=== PATIENT | male | born 1975 | race Caucasian/White ===

== ENCOUNTER 2016-04-05 21:10 | Emergency (ER) ==
[2016-04-05 21:23] VITALS: BP 134/83; BMI 24.7
[2016-04-05 21:33] LABS: BASOPHILS # (AUTO) 0.1 K/uL (0-0.2); BASOPHILS % (AUTO) 0.5 % (0.0-3.0); EOSINOPHILS # (AUTO) 0.2 K/ul (0.0-0.7); EOSINOPHILS % (AUTO) 2.1 % (0.0-7.0); HEMATOCRIT 39.4 % (42.0-52.0); HEMOGLOBIN 12.8 g/dl (14.0-18.0); IMMATURE GRANULOCYTE % (AUTO) 0.3 % (0.0-5.0); MEAN CORPUSCULAR HEMOGLOBIN 26.9 pg (27.0-31.0); MEAN CORPUSCULAR HGB CONC 32.5 (31.8-35.4); MEAN CORPUSCULAR VOLUME 82.8 fl (80.0-94.0); MONOCYTES # (AUTO) 1.9 K/uL (0.4-2.0); MONOCYTES % (AUTO) 16.9 (0-10); NEUTROPHILS # (AUTO) 5.1 K/ul (2.0-6.9); NEUTROPHILS % (AUTO) 45.2; PLATELET COUNT 197 10^3/uL (140-440); RED BLOOD COUNT 4.76 10^6/ul (4.70-6.10); WHITE BLOOD COUNT 11.33 K/ul (4.2-10.2)
[2016-04-05] MEDS ORDERED: ATIVAN PO STA (21:45)
[2016-04-05 21:50] LABS: BILIRUBIN,URINE Negative (NEGATIVE); KETONES,URINE Negative (NEGATIVE); LEUKOCYTE ESTERASE ,URINE Negative (NEGATIVE); NITRITE,URINE Negative (NEGATIVE); PH,URINE 5.5 (5-9); PROTEIN,URINE Negative (NEGATIVE); URINE, BLOOD Negative (NEGATIVE)
[2016-04-05 21:51] LABS: ADD URINE MICROSCOPIC NO
[2016-04-05 22:00] LABS: COCAIN SCREEN,URINE NEGATIVE (NEGATIVE)
[2016-04-05 22:16] LABS: ALANINE AMINOTRANSFERASE 22 U/L (12-78); ALBUMIN 3.3 g/dL (3.4-5.0); ALBUMIN/GLOBULIN RATIO 0.85; ALKALINE PHOSPHATASE 90 U/L (50-136); ANION GAP 16.8; ASPARTATE AMINO TRANSFERASE 45 U/L (15-37); BILIRUBIN,TOTAL 0.19 mg/dL (0.00-1.20); BLOOD UREA NITROGEN 8 mg/dL (7-18); BUN/CREATININE RATIO 10.38; CALCIUM 8.9 mg/dL (8.2-10.2); CARBON DIOXIDE 21 mmol/L (21-32); CHLORIDE 98 mmol/L (98-107); CREATINE KINASE 119 U/L; CREATINE KINASE MB 4.6 ng/ml (0.0-3.6); CREATININE 0.77 mg/dL (0.60-1.10); GLUCOSE 64 mg/dL (70-100); POTASSIUM 3.8 mmol/L (3.5-5.1); SODIUM 132 mmol/L (136-145); TOTAL PROTEIN 7.2 g/dL (6.4-8.2)
[2016-04-05] MEDS ORDERED: DEXTROSE 50%-WATER ABBOJECT IVP ONE (22:22)
--- NOTE | 2016-04-05 23:07 | ED.PDOC ---
General ED Provider: Dr. AMANDA FRANKS-ER Chief Complaint: Psychiatric Complaint Stated Complaint: i feel nervous and jittery Time Seen by Physician: 21:15 Mode of Arrival: Walk-In Information Source: Patient, Family Exam Limitations: No limitations Nursing and Triage Documentation Reviewed and Agree: Yes Miscellaneous Complaint Exam - Complex/Multi-System Complaint/Exam Onset/Duration: 2 hrs Symptoms Are: Still present Episodes Lasting: Hours Initial Severity: Mild Current Severity: Mild Location of Pain: no pain Associated Signs and Symptoms: Denies: Decreased responsiveness, Confusion, Agitation, Dizziness, Weakness, Syncope, Headache, Short of air, Cough, Wheezing , Hemoptysis, Chest pain, Palpitations, Edema, Nausea, Vomiting, Diarrhea, Abdominal pain, Back pain, Dysuria, Hematemesis, Melena, Decreased oral intake, Fever, Diaphoresis, Immunocompromised, Anticoagulation Therapy, Recent medication changes, 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, Prior MRSA, Prior VRE, Recent trauma, Remote trauma Recent Echo/LV Function: No JVD Present: No Tachypnea Present: No Stridor Present: No Abdominal Findings: Present: Normal findings Glascow Coma Scale (see protocol): 15 Meningeal Signs Positive: No Focal Weakness: Present: None Focal Sensory Loss: Present: None Gait: Normal Gag Reflex Present: No Babinski Sign: Negative Right, Negative Left Skin Findings: Present: Normal findings Joint Swelling Present: No In-Dwelling Device Present: No Differential Diagnosis: Metabolic Abnormality Quality Indicator For Non-Traumatic Chest Pain/Syncope: EKG Performed Review of Systems - Review Of Systems Constitutional: Reports: No symptoms Eyes: Reports: No symptoms Ears, Nose, Mouth, Throat: Reports: No symptoms Respiratory: Reports: No symptoms Cardiac: Reports: No symptoms GI: Reports: No symptoms : Reports: No symptoms Musculoskeletal: Reports: No symptoms Skin: Reports: No symptoms Neurological: Reports: Anxiety Endocrine: Reports: No symptoms Hematologic/Lymphatic: Reports: No symptoms All Other Systems: Reviewed and Negative Past Medical History - Past Medical History Previously Healthy: Yes Endocrine: Reports: None Cardiovascular: Reports: None Respiratory: Reports: None Hematological: Reports: None Gastrointestinal: Reports: None Genitourinary: Reports: None Neuro/Psych: Reports: None Musculoskeletal: Reports: None Cancer: Reports: None - Surgical History General Surgical History: Reports: None - Family History Family History: Reports: None - Social History Smoking Status: Current every day smoker Hx Substance Use: No Alcohol Screening: Occasionally Lives: With family - Immunizations Tetanus Shot up to Date: Yes Physical Exam - Physical Exam Appearance: Well-appearing, No pain distress, Well-nourished Eyes: MART, EOMI, Conjunctiva clear ENT: Ears normal, Nose normal, Oropharynx normal Neck: Supple Respiratory: Airway patent, Breath sounds clear, Breath sounds equal, Respirations nonlabored Cardiovascular: RRR, Pulses normal, No rub, No murmur GI/: Soft, Nontender, No masses, Bowel sounds normal, No Organomegaly Musculoskeletal: Normal strength, ROM intact, No edema, No calf tenderness Skin: Warm, Dry, Normal color Neurological: Sensation intact, Motor intact, Reflexes intact, Cranial nerves intact, Alert, Oriented Psychiatric: Affect appropriate, Mood appropriate Re-Evaluation - Re-Evaluation Time of Re-Evaluation: 23:06 Status: Improved Vital Signs Stable: Yes Pain Level: 0 Appearance: NAD Lungs: Clear Skin: Warm and Dry Neuro: Alert and Oriented X3 CV: RRR Critical Care Note - Critical Care Note Total Time (mins): 0 Course - Course Hematology/Chemistry: 04/05/16 21:37 04/05/16 21:37 Orders, Labs, Meds: Lab Review 04/05/16 04/05/16 21:37 21:42 WBC 11.33 H RBC 4.76 Hgb 12.8 L Hct 39.4 L MCV 82.8 MCH 26.9 L MCHC 32.5 RDW Coeff of Javed 16.7 H Plt Count 197 Immature Gran % (Auto) 0.3 Neut % (Auto) 45.2 Lymph % (Auto) 35.0 [place] % (Auto) 16.9 H Eos % (Auto) 2.1 Baso % (Auto) 0.5 Immature Gran # (Auto) 0.0 Neut # 5.1 Lymph # 4.0 H Kern # 1.9 Eos # 0.2 Baso # 0.1 D-Dimer 0.57 Sodium 132 L Potassium 3.8 Chloride 98 Carbon Dioxide 21 Anion Gap 16.8 BUN 8 Creatinine 0.77 Estimated GFR (MDRD) 111.00 BUN/Creatinine Ratio 10.38 Glucose 64 L Calcium 8.9 Total Bilirubin 0.19 AST 45 H ALT 22 Alkaline Phosphatase 90 Total Creatine Kinase 119 CK-MB (CK-2) 4.6 H CK-MB (CK-2) % 3.90004 Troponin I < 0.0100 Total Protein 7.2 Albumin 3.3 L Globulin 3.9 Albumin/Globulin Ratio 0.85 TSH 1.687 Free T4 0.91 Urine Color Yellow Urine Clarity Clear Urine pH 5.5 Ur Specific [place] 1.010 Urine Protein Negative Urine Glucose (UA) 1+ Urine Ketones Negative Urine Blood Negative Urine Nitrite Negative Urine Bilirubin Negative Urine Urobilinogen 0.2 Ur Leukocyte Esterase Negative Urine Opiates Screen Positive Ur Oxycodone Screen Negative Urine Methadone Screen Negative Ur Propoxyphene Screen Negative Ur Barbiturates Screen Negative U Tricyclic Antidepress Negative Ur Phencyclidine Scrn Negative Ur Amphetamine Screen Negative U Methamphetamines Scrn Negative U Benzodiazepines Scrn Negative Urine Cocaine Screen Negative U Cannabinoids Screen Negative Orders Category Date Time Status EKG-(ED ONLY) Stat CARDIO 04/05/16 21:21 Ordered ACCUCHECK (ED) [ED ACCUCHECK ASSESSMENT] .ONCE EMERGENCY 04/05/16 21:24 Active ACCUCHECK (ED) [ED ACCUCHECK ASSESSMENT] .ONCE EMERGENCY 04/05/16 23:00 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] .ONCE EMERGENCY 04/05/16 21:23 Active ED IV/MEDIPORT/POWERPORT .ONCE EMERGENCY 04/05/16 22:22 Active CBC W/ AUTO DIFF Stat LAB 04/05/16 21:37 Completed COMPREHENSIVE METABOLIC PANEL Stat LAB 04/05/16 21:37 Completed CREATINE KINASE Stat LAB 04/05/16 21:37 Completed D-DIMER Stat LAB 04/05/16 21:37 Completed FREE T4 (FREE THYROXINE) Stat LAB 04/05/16 21:37 Completed THYROID STIMULATING HORMONE Stat LAB 04/05/16 21:37 Completed TROPONIN I Stat LAB 04/05/16 21:37 Completed URINALYSIS C & S IF INDICATED Stat LAB 04/05/16 21:42 Completed URINE DRUG SCREEN (RAPID FOR ED) [DRUG SCREEN, URINE, LAB 04/05/16 21:42 Completed RAPID] Stat 0.9 % Sodium Chloride [Saline Flush] MEDS 04/05/16 22:22 Ordered 1 syr IVF PRN PRN Dextrose 50 % in Water [Dextrose 50%-Water Abboject] MEDS 04/05/16 22:22 Discontinued 50 ml IVP NOW ONE Lorazepam [Ativan] MEDS 04/05/16 21:45 Discontinued 1 mg PO ONCE STA Medications Generic Name Dose Route Start Last Admin Trade Name Freq PRN Reason Stop Dose Admin Sodium Chloride 1 syr 04/05/16 22:22 Saline Flush IVF PRN PRN To flush IV Discontinued Medications Generic Name Dose Route Start Last Admin Trade Name Freq PRN Reason Stop Dose Admin Dextrose 50 ml 04/05/16 22:22 Dextrose 50%-Water Abboject IVP 04/05/16 22:23 NOW ONE Lorazepam 1 mg 04/05/16 21:45 04/05/16 22:04 Ativan PO 04/05/16 21:46 1 mg ONCE STA Administration Vital Signs: Temp Pulse Resp BP Pulse Ox 04/05/16 21:10 9734 F H 92 H 20 134/83 98 Departure - Departure Time of Disposition: 23:06 Disposition: HOME SELF-CARE Discharge Problem: Hypoglycemia, Anxiety Instructions: Non-diabetic Hypoglycemia (ED) Condition: Good Pt referred to PMD for follow-up: Yes Additional Instructions: watch diet--avoid simple carbs and surgery drinks--talk to your pcp about bs monitoring Allergies/Adverse Reactions: Allergies aspirin Adverse Reaction (Verified 04/05/16 21:18) states, "makes my heart slow down" Penicillins Adverse Reaction (Verified 04/05/16 21:18) Rash Home Medications: Ambulatory Orders Acetaminophen with Codeine [Acetaminophen-Cod #3 Tablet] 1 tab PO Q4H PRN Amlodipine Besylate 10 mg PO DAILY 04/05/16 Atenolol 50 mg PO BID 04/05/16 Divalproex Sodium [Depakote] 250 mg PO TID 04/05/16 Risperidone [Risperdal] 1.5 mg PO BID 04/05/16 Disposition Discussed With: Patient, Family
[2016-04-07 07:38] VITALS: TEMP 97.3
== END 2016-04-05 22:15 | disposition home or self-care (01) ==
LOC: ED 21:10
DX: E16.2 Hypoglycemia, unspecified (principal); F41.9 Anxiety disorder, unspecified; F17.210 Nicotine dependence, cigarettes, uncomplicated; Z79.899 Other long term (current) drug therapy
CPT/HCPCS: 36415; 80053; 80306; 81001; 82550; 82553; 82962; 84439; 84443; 84484; 85025; 85379; 93005; 93010; 96374; 96375; 99284

== ENCOUNTER 2017-03-26 14:35 | Emergency (ER) ==
[2017-03-26 14:43] VITALS: BP 163/96; TEMP 97.5; BMI 26.0
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
--- NOTE | 2017-03-26 18:58 | DI ---
EXAM: Three views of the left hand HISTORY: Left hand pain post fall. COMPARISON: Left wrist x-rays same day FINDINGS: There is cortical irregularity and displaced fracture of the distal phalanx of the fifth di git with degenerative change of the associated joint spaces and metallic densities throughout the sof t tissues. No prior is available to evaluate for change. The adjacent osseous structures are unremar kable. IMPRESSION: 1. Mildly displaced fracture of the distal phalanx with associated soft tissue swelling and metallic densities in the soft tissues. Please correlate with trauma. 2. No additional abnormalities are identified.
--- NOTE | 2017-03-26 18:59 | DI ---
EXAM: Two views of the left forearm HISTORY: Fall COMPARISON: Same day left wrist and hand x-rays FINDINGS: There is no lytic or blastic lesion identified. Joint spaces are maintained. There is no displaced fracture or dislocation. The soft tissues are normal. IMPRESSION: No acute abnormality or displaced fracture of the left forearm.
--- NOTE | 2017-03-26 19:08 | DI ---
EXAM: Left wrist, three views, 03/26/2017 HISTORY: Pain COMPARISON: None. FINDINGS / IMPRESSION: Subtle cortical irregularity is present at the lateral aspect of the radial m etaphysis. This line represents a nondisplaced fracture site. Soft tissue swelling anterior distal ra dius may represent hematoma. The distal ulna appears intact. The carpal bones appear intact. No definitive intra-articular extension. If clinically indicated CT could be considered for further c haracterization.
== END 2017-03-26 20:16 | disposition home or self-care (01) ==
LOC: ED 14:35
DX: S52.502A Unspecified fracture of the lower end of left radius, initial encounter for closed fracture (principal); V28.4XXA Motorcycle driver injured in noncollision transport accident in traffic accident, initial encounter; F17.210 Nicotine dependence, cigarettes, uncomplicated
CPT/HCPCS: 99283

== ENCOUNTER 2019-01-03 19:02 | Inpatient (IN) ==
[2019-01-03] MEDS ORDERED: FLOMAX PO STA (19:41)
[2019-01-03] MEDS ORDERED: LACTATED RINGERS 1,000 ML IV STA (19:41)
--- NOTE | 2019-01-03 19:52 | ED.PDOC ---
General ED Provider: Dr. PRADEEP MARINO Chief Complaint: Urinary Problem Stated Complaint: Patient is a 43 year old male who states that he had a Hernandez catheter placed 6 days ago. States that starting yesterday he feels like he is not urinating. Has also not been dinking enough. Feels full Denies fever. Time Seen by Physician: 19:45 Mode of Arrival: Walk-In Information Source: Patient Primary Care Provider: IZAIAH PACHECO Nursing and Triage Documentation Reviewed and Agree: Yes Does patient meet sepsis criteria?: No System Inflammatory Response Syndrome: Not Applicable Sepsis Protocol: For patient's 13 years and over: Temp is 96.8 and below OR 101 and greater Pulse >90 BPM Resp >20/minute Acutely Altered Mental Status Are patient's symptoms suggestive of a new infection, such as: -Pneumonia -Skin, Soft Tissue -Endocarditis -UTI -Bone, Joint Infection -Implantable Device -Acute Abdominal Infection -Wound Infection -Meningitis -Blood Stream Catheter Infection -Unknown Complaint Exam Complaint/Exam Patient Complains of: Reports Dysuria Onset/Duration: yesterday Symptoms Are: Still present Timing: Constant Initial Severity: Mild Current Severity: Mild Location of Pain: Reports Suprapubic (and catheter site ) Character: Reports Dull Aggravating: Reports None Alleviating: Reports None Associated Signs and Symptoms: Denies Diaphoresis, Back pain, Fever, Hematuria, Dysuria, Constipation, Blood in stool, Rectal pain, Appetite change, Nausea, Vomiting, Penile swelling, Penile discharge, Decreased urine output, Increased urine frequency, Increased thirst, Decreased activity, Lethargy, Scrotal pain, Scrotal swelling and Abdominal Pain Last Voided: does not remember Testicular Torsion Risk Factors: Reports None Surgical Obstruction Risk Factors: Reports None Related Surgical History: Reports None Abdominal Findings: Present None Genitalia Exam: Present Normal findings Differential Diagnoses: UTI and Other (Bladder spasm due to hernandez cathter. ) Review of Systems Review Of Systems Constitutional: Reports No symptoms Eyes: Reports No symptoms Ears, Nose, Mouth, Throat: Reports No symptoms Respiratory: Reports No symptoms Cardiac: Reports No symptoms GI: Reports No symptoms : Reports Dysuria and Other (Difficulty Urinating despitne having a catheter. ) Musculoskeletal: Reports No symptoms Skin: Reports No symptoms Neurological: Reports Anxiety Endocrine: Reports No symptoms Hematologic/Lymphatic: Reports No symptoms All Other Systems: Reviewed and Negative [facility] Medical History (Updated 01/03/19 @ 23:38 by GERI HAYNES) History of repair of hiatal hernia (Acute) Hx of hiatal hernia (Acute) Family History (Updated 01/03/19 @ 23:38 by GERI HAYNES) MATERNAL GRANDFATHER Cancer Hypertension MATERNAL GRANDMOTHER Cancer Hypertension PATERNAL GRANDFATHER Cancer Hypertension PATERNAL GRANDMOTHER Cancer Hypertension 32 MOTHER Hypertension Social History (Updated 01/03/19 @ 23:40 by GERI HAYNES) Do you feel safe at home: Yes History of physical abuse: No History of emotional abuse: No History of sexual abuse: No Smoking and tobacco status: Former smoker Tobacco: How many years used: 31 Smoking status stop date: 01/01/19 History of recent travel: No Physical Exam Physical Exam Appearance: Thin Ill-appearing: Mild Pain Distress: Mild Respiratory: Airway patent, Breath sounds clear and Breath sounds equal Cardiovascular: RRR, Pulses normal, No rub and No murmur GI/: Soft, Nontender, No masses and Bowel sounds normal Musculoskeletal: Normal strength, ROM intact and No edema Skin: Warm and Dry Neurological: Motor intact, Alert and Oriented Psychiatric: Anxious Interpretation Radiology Interpretation Radiology Interpretation By: ED Physician Radiology Results: Negative Exam Interpreted: Portable CXR EKG Interpretation Time of EKG #1: 22:03 Rate: Normal Rhythm: Sinus Ectopy: None ST Segment: Normal Interpretation: incomplete RBBB, Left Atrial Fasicular block Physician Notification Case Discussed Physician Notified: Dr Perkins Time of Notification: 21:55 Critical Care Note Critical Care Note Total Time (mins): 40 Course Course Hematology/Chemistry: 01/04/19 06:11 01/04/19 06:11 Orders, Labs, Meds: Lab Review 01/03/19 01/03/19 01/03/19 19:29 20:00 20:00 WBC 19.64 H RBC 4.04 L Hgb 12.6 L Hct 35.0 L MCV 86.6 MCH 31.2 H MCHC 36.0 H RDW Coeff of Javed 11.7 Plt Count 252 Immature Gran % (Auto) 0.6 Neut % (Auto) 92.0 Lymph % (Auto) 2.5 L [place] % (Auto) 4.7 Eos % (Auto) 0.1 Baso % (Auto) 0.1 Immature Gran # (Auto) 0.1 Neut # (Auto) 18.1 H Lymph # (Auto) 0.5 L Porter # (Auto) 0.9 Eos # (Auto) 0.0 Baso # (Auto) 0.0 Sodium 123.8 L Potassium 4.37 Chloride 87.6 L Carbon Dioxide 27.8 Anion Gap 12.77 BUN 8.2 L Creatinine 0.76 Estimated GFR (MDRD) 111.00 BUN/Creatinine Ratio 10.78 Glucose 143.2 H Lactic Acid Calcium 9.47 Total Bilirubin 0.73 AST 24.7 ALT 16.5 Alkaline Phosphatase 85.0 Total Protein 7.66 Albumin 4.53 Globulin 3.13 Albumin/Globulin Ratio 1.44 Procalcitonin Urine Color Yellow Urine Clarity Cloudy Urine pH 8.5 Ur Specific [place] 1.020 Urine Protein 2+ Urine Glucose (UA) Negative Urine Ketones 1+ Urine Blood 2+ Urine Nitrite Positive Urine Bilirubin Negative Urine Urobilinogen 1.0 Ur Leukocyte Esterase 3+ Urine Microscopic RBC 5-10 Urine Microscopic WBC 30-50 Ur Squamous Epith Cells Not present Ur Renal Epithelial Cell 0-2 Amorphous Sediment Trace Urine Bacteria 1+ 01/03/19 01/03/19 21:00 21:00 WBC RBC Hgb Hct MCV MCH MCHC RDW Coeff of Javed Plt Count Immature Gran % (Auto) Neut % (Auto) Lymph % (Auto) [place] % (Auto) Eos % (Auto) Baso % (Auto) Immature Gran # (Auto) Neut # (Auto) Lymph # (Auto) [place] # (Auto) Eos # (Auto) Baso # (Auto) Sodium Potassium Chloride Carbon Dioxide Anion Gap BUN Creatinine Estimated GFR (MDRD) BUN/Creatinine Ratio Glucose Lactic Acid 1.59 Calcium Total Bilirubin AST ALT Alkaline Phosphatase Total Protein Albumin Globulin Albumin/Globulin Ratio Procalcitonin 0.11 Urine Color Urine Clarity Urine pH Ur Specific [place] Urine Protein Urine Glucose (UA) Urine Ketones Urine Blood Urine Nitrite Urine Bilirubin Urine Urobilinogen Ur Leukocyte Esterase Urine Microscopic RBC Urine Microscopic WBC Ur Squamous Epith Cells Ur Renal Epithelial Cell Amorphous Sediment Urine Bacteria Orders Category Date Time Status EKG-(ED ONLY) Stat CARDIO 01/03/19 21:59 Completed ED BLADDER SCAN .ONCE EMERGENCY 01/03/19 19:21 Active ED IV/MEDIPORT/POWERPORT .ONCE EMERGENCY 01/03/19 19:41 Active BLOOD CULTURE (ED ONLY) Stat LAB 01/03/19 Received CBC W/ AUTO DIFF Stat LAB 01/03/19 20:00 Completed COMPREHENSIVE METABOLIC PANEL Stat LAB 01/03/19 20:00 Completed LACTIC ACID Stat LAB 01/03/19 21:00 Completed PROCALCITONIN Stat LAB 01/03/19 21:00 Completed URINALYSIS C & S IF INDICATED Stat LAB 01/03/19 19:29 Completed URINE CULTURE Stat LAB 01/03/19 19:43 Received 0.9 % Sodium Chloride [Saline Flush] MEDS 01/03/19 19:41 Active 1 syr IVF PRN PRN Levofloxacin/D5w [Levaquin 500 mg/100 ml D5w] MEDS 01/03/19 20:35 Discontinued 500 mg in 100 ml IV ONCE Lorazepam [Ativan] MEDS 01/03/19 20:37 Discontinued 1 mg PO ONCE STA Morphine Sulfate [Morphine 4 mg/ml Vial] MEDS 01/03/19 22:19 Discontinued 4 mg IVP ONCE STA Ringers Lactated Solution [Lactated Ringers] 1,000 ml MEDS 01/03/19 19:41 Discontinued IV BOLUS Tamsulosin HCl [Flomax] MEDS 01/03/19 19:41 Discontinued 0.4 mg PO ONCE STA CHEST, 1V AP ONLY Stat RADS 01/03/19 21:59 Completed Medications Generic Name Dose Route Start Last Admin Trade Name Freq PRN Reason Stop Dose Admin Acetaminophen 650 mg 01/03/19 22:48 01/04/19 00:58 Tylenol PO 650 mg Q4H PRN Administration Fever > 102 Amlodipine Besylate 10 mg 01/04/19 09:00 Norvasc PO DAILY [facility] Atenolol 50 mg 01/04/19 09:00 Tenormin PO DAILY [facility] Benztropine Mesylate 0.5 mg 01/04/19 09:00 Cogentin PO TID [facility] Enoxaparin Sodium 40 mg 01/04/19 09:00 Lovenox SUBCUT DAILY [facility] Haloperidol 1 mg 01/04/19 09:00 Haldol PO TID [facility] Hydroxyzine HCl 25 mg 01/04/19 09:00 Atarax PO TID [facility] Sodium Chloride 1,000 mls @ 90 mls/hr 01/03/19 23:00 01/03/19 23:38 Sodium Chloride IV 90 mls/hr .[id number] URSZULA Administration Levofloxacin/Dextrose 500 mg in 100 mls @ 100 mls/hr 01/04/19 21:00 Levaquin 500 Mg/100 Ml D5w IV 01/07/19 20:59 Q24H URSZULA Meloxicam 15 mg 01/04/19 09:00 Mobic PO DAILY [facility] Non-Formulary Medication 2 mg 01/04/19 09:00 Trihexyphenidyl PO TID URSZULA Ondansetron HCl 4 mg 01/03/19 22:48 Zofran 4 Mg/2 Ml IVP Q6H PRN Nausea / Vomiting Oxcarbazepine 300 mg 01/04/19 09:00 Trileptal PO TID URSZULA Ranitidine HCl 150 mg 01/04/19 21:00 Zantac PO BEDTIME URSZULA Sodium Chloride 1 syr 01/03/19 19:41 Saline Flush IVF PRN PRN To flush IV Discontinued Medications Generic Name Dose Route Start Last Admin Trade Name Freq PRN Reason Stop Dose Admin Lactated Ringer's 1,000 mls @ 1,000 mls/hr 01/03/19 19:41 01/03/19 20:23 Lactated Ringers IV 01/03/19 20:40 1,000 mls/hr BOLUS STA Administration Levofloxacin/Dextrose 500 mg in 100 mls @ 100 mls/hr 01/03/19 20:35 01/03/19 20:47 Levaquin 500 Mg/100 Ml D5w IV 01/03/19 21:34 100 mls/hr ONCE STA Administration Lorazepam 1 mg 01/03/19 20:37 01/03/19 20:43 Ativan PO 01/03/19 20:38 1 mg ONCE STA Administration Morphine Sulfate 4 mg 01/03/19 22:19 01/03/19 22:32 Morphine 4 Mg/Ml Vial IVP 01/03/19 22:20 4 mg ONCE STA Administration Tamsulosin HCl 0.4 mg 01/03/19 19:41 01/03/19 20:22 Flomax PO 01/03/19 19:42 0.4 mg ONCE STA Administration Vital Signs: Temp Pulse Resp BP Pulse Ox 01/03/19 19:02 97.9 F 98 H 18 145/85 H 96 Discharge Plan Discharge Patient Disposition: ADMITTED INPATIENT Discharge Problem: Hyponatremia Urinary tract infection associated with indwelling urethral catheter Qualifiers: Encounter type: initial encounter Qualified Code(s): T83.511A - Infection and inflammatory reaction due to indwelling urethral catheter, initial encounter ED Provider: PRADEEP MARINO Condition: Fair Discharge Date/Time: 01/03/19 23:18
[2019-01-03] MEDS ORDERED: LEVAQUIN 500 MG/100 ML D5W 500 MG/100 ML BAG IV STA (20:35)
[2019-01-03] MEDS ORDERED: ATIVAN PO STA (20:37)
[2019-01-03] MEDS ORDERED: MORPHINE 4 MG/ML VIAL IVP STA (22:19)
--- NOTE | 2019-01-03 22:21 | DI ---
EXAM: Chest, one-view HISTORY: Cough FINDINGS: Cardiac and mediastinal contours are normal. Pulmonary vasculature is normal. Lungs are clear. Bony thorax is unremarkable. IMPRESSION: Within normal limits
[2019-01-03] MEDS ORDERED: ZOFRAN 4 MG/2 ML IVP PRN (22:48)
[2019-01-03 23:34] VITALS: BMI 22.4
[2019-01-03] MEDS: SODIUM CHLORIDE 1,000 ML IV SCH (23:38)
[2019-01-04] MEDS: TYLENOL PO PRN ×2 (00:58→16:10)
[2019-01-04] MEDS: COGENTIN PO SCH ×3 (08:01→20:31)
[2019-01-04] MEDS: ATARAX PO SCH ×3 (08:01→20:31)
[2019-01-04] MEDS: NORVASC PO SCH (08:01)
[2019-01-04] MEDS: TRILEPTAL PO SCH ×3 (08:01→20:31)
[2019-01-04] MEDS: TENORMIN PO SCH (08:01)
[2019-01-04] MEDS: HALDOL PO SCH ×3 (08:02→20:30)
[2019-01-04] MEDS: MOBIC PO SCH ×2 (08:02→08:39)
[2019-01-04] MEDS: LOVENOX SUBCUT SCH (08:35)
[2019-01-04] MEDS ORDERED: NON-FORMULARY MEDICATION (Oxcarbazepine 300 MG) PO SCH (09:00)
[2019-01-04] MEDS: TRIHEXYPHENIDYL 2 MG PO SCH ×3 (09:17→20:32)
--- NOTE | 2019-01-04 09:25 | HP ---
DATE OF SERVICE: 01/03/2019 REASON FOR HOSPITALIZATION: Hyponatremia and urosepsis. HISTORY OF PRESENT ILLNESS: This 43 year old /WHITE M was hospitalized 01/03/19 with UTI. The patient had feeling like he is not completely evacuating his bladder and came to the emergency room last night. PAST MEDICAL HISTORY: Hypertension Generalized osteoarthritis Depression He has medical problems involving mental health and is followed by Dr. Richard Rhodes, Primary Care in [place], [place]. Dr. Rhodes referred the patient to urologist and is to be seen this month. The patient was seen in the ER one week ago at [facility] and Lamb catheter was introduced because of possibility of stricture. He still has the Lamb. The patient states he has a broken back for past 13 to 14 years and has been disabled since then but is up and about does all activity of daily living in no distress. REVIEW OF SYSTEMS: CONSTITUTIONAL: No night sweats. No fatigue, malaise, lethargy. No fever or chills. HEENT: Eyes: No visual changes. No eye pain. No eye discharge. ENT: No runny nose. No epistaxis. No sinus pain. No sore throat. No odynophagia. No ear pain. No congestion. RESPIRATORY: No cough, no congestion. No hemoptysis. No shortness of breath. CARDIOVASCULAR: No angina symptoms. No CHF symptoms. No atypical chest pain for CAD. No palpitations. No PND. No orthopnea. GASTROINTESTINAL: No abdominal pain. No nausea or vomiting. No diarrhea or constipation. No hematemesis. No hematochezia. GENITOURINARY: Lamb catheter in place. Feels as though he is not completely emptying his bladder. MUSCULOSKELETAL: No musculoskeletal pain. No joint swelling. No arthritis. NEUROLOGICAL: No headache. No neck pain. No syncope. No seizures. No dizziness. PSYCHIATRIC: Not anxious. No depression. No suicidal thoughts. No homicidal thoughts. SKIN: No rash. No lesions. No wounds. ENDOCRINE: No unexplained weight loss. No weight gain. HEMATOLOGIC/LYMPHATIC: No anemia. No purpura. No petechiae. No prolonged or excessive bleeding. No palpable lymph nodes. PERSONAL/FAMILY/SOCIAL HISTORY: The patient is single, lives with girlfriend. The patient is a smoker. Also smokes marijuana. Family History: Hypertension. MEDICATIONS: (HOME) Haloperidol 1 mg p.o. t.i.d. Ranitidine (Zantac) Hydroxyzine 25 mg p.o. t.i.d. Amlodipine 10 mg p.o. daily Oxcarbazepine 300 mg p.o. t.i.d. Meloxicam 15 mg p.o. daily Trihexyphenidyl 2 mg p.o. t.i.d. Benztropine 0.5 mg p.o. t.i.d. Atenolol 50 mg p.o. daily ALLERGIES: ASPIRIN, PENICILLINS PHYSICAL EXAMINATION: GENERAL: The patient is awake, alert and oriented, lying/sitting in bed in no distress. VITAL SIGNS: Temperature 99.2 F, Pulse 89, Respiratory Rate 16, BP 111/65, Pulse Ox 91% HEENT: Face is symmetric. Head normocephalic, atraumatic. Eyes: Extraocular muscles are intact. Pupils are equal, round and reactive to light and accommodation. Ears: No lesions. Nose appeared normal. Throat: No exudate or erythema. NECK: Supple. No JVD, no carotid bruit. No lymphadenopathy or thyromegaly. LUNGS: Clear to auscultation. Percussion note normal. Chest symmetrical. HEART: S1, S2, no S3. No murmur. No cyanosis or clubbing. No ascites. Pulses: Dorsalis pedis and posterior tibial pulses +1 to +2 bilaterally. ABDOMEN: Soft. Nontender. Bowel sounds active. No CVA tenderness. No mass felt. EXTREMITIES: No edema. Full range of motion of all extremities, equal. NEUROLOGIC: No focal deficit. Cranial nerves II through XII are grossly intact. No headache, no double vision or headache. SKIN: Not dry. Intact. Turgor - normal. LYMPHATIC: No palpable lymph nodes/no lymphedema. MUSCULOSKELETAL: Normal joints with no swelling. Muscle tone is normal. LAB REVIEW: 01/04/19 06:11: Sodium 123.6 L, Potassium 4.30, Chloride 91.9 L, Carbon Dioxide 25.2, Anion Gap 10.80, BUN 7.7 L, Creatinine 0.75, Estimated GFR (MDRD) 113.00, BUN/Creatinine Ratio 10.26, Glucose 134.1 H, Calcium 8.73 01/04/19 06:11: WBC 25.00 H D, RBC 3.67 L, Hgb 11.3 L, Hct 31.5 L, MCV 85.8, MCH 30.8, MCHC 35.9 H, RDW Coeff of Javed 11.7, Plt Count 210, Immature Gran % (Auto) 0.8, Neut % (Auto) 84.8, Lymph % (Auto) 4.6 L, [place] % (Auto) 9.7, Eos % (Auto) 0.0, Baso % (Auto) 0.1, Immature Gran # (Auto) 0.2, Neut # (Auto) 21.2 H, Lymph # (Auto) 1.2, [place] # (Auto) 2.4 H, Eos # (Auto) 0.0, Baso # (Auto) 0.0 01/03/19 21:00: Procalcitonin 0.11 01/03/19 21:00: Lactic Acid 1.59 01/03/19 20:00: Sodium 123.8 L, Potassium 4.37, Chloride 87.6 L, Carbon Dioxide 27.8, Anion Gap 12.77, BUN 8.2 L, Creatinine 0.76, Estimated GFR (MDRD) 111.00, BUN/Creatinine Ratio 10.78, Glucose 143.2 H, Calcium 9.47, Total Bilirubin 0.73, AST 24.7, ALT 16.5, Alkaline Phosphatase 85.0, Total Protein 7.66, Albumin 4.53, Globulin 3.13, Albumin/Globulin Ratio 1.44 01/03/19 20:00: WBC 19.64 H, RBC 4.04 L, Hgb 12.6 L, Hct 35.0 L, MCV 86.6, MCH 31.2 H, MCHC 36.0 H, RDW Coeff of Javed 11.7, Plt Count 252, Immature Gran % (Auto) 0.6, Neut % (Auto) 92.0, Lymph % (Auto) 2.5 L, [place] % (Auto) 4.7, Eos % (Auto) 0.1, Baso % (Auto) 0.1, Immature Gran # (Auto) 0.1, Neut # (Auto) 18.1 H, Lymph # (Auto) 0.5 L, [place] # (Auto) 0.9, Eos # (Auto) 0.0, Baso # (Auto) 0.0 01/03/19 19:29: Urine Color Yellow, Urine Clarity Cloudy, Urine pH 8.5, Ur Specific [place] 1.020, Urine Protein 2+, Urine Glucose (UA) Negative, Urine Ketones 1+, Urine Blood 2+, Urine Nitrite Positive, Urine Bilirubin Negative, Urine Urobilinogen 1.0, Ur Leukocyte Esterase 3+, Urine Microscopic RBC 5-10, Urine Microscopic WBC 30-50, Ur Squamous Epith Cells Not present, Ur Renal Epithelial Cell 0-2, Amorphous Sediment Trace, Urine Bacteria 1+ ASSESSMENT: 1. UTI with leukocytosis and low grade fever. 2. Hyponatremia from drinking too much water as he was instructed to do that for the UTI. 3. History of hypertension. 4. Generalized osteoarthritis. 5. Depression. PLAN: 1. Continue all medications. 2. Continue Levaquin. 3. Add Azactam 1 gm IV q.12hr. 4. Continue IV fluids 1000 mL. 5. Lamb catheter in place. 6. Restrict oral fluid intake. 7. D/C Meloxicam. TIME SPENT: More than 70 minutes. PLAN: Plan and coordination of the patient's care discussed in the presence of Spanish Medical Interpreter and nurse. SCRIBED BY: BHUMIKA SIMPSON, Parts Inspector scribed while in presence of service performed by Dr. KRISTIN MENDOZA-[facility] on 01/04/19 ([id number]) CATRINA
--- NOTE | 2019-01-04 09:33 | PCM.PROG ---
Attending Provider: ATTENDING PROVIDER: [facility] DATE OF SERVICE: 01/04/19 SUBJECTIVE: This 43 year old /WHITE M was hospitalized 01/03/19 with UTI. The patient has the feeling like he is not completely evacuating his bladder. He came to the emergency room here at [facility] last night. REVIEW OF SYSTEMS: CONSTITUTIONAL: No night sweats. No fatigue, malaise, lethargy. No fever or chills. HEENT: Eyes: No visual changes. No eye pain. No eye discharge. ENT: No runny nose. No epistaxis. No sinus pain. No odynophagia. No congestion. RESPIRATORY: No cough, no congestion. No hemoptysis. No shortness of breath. CARDIOVASCULAR: No angina symptoms. No CHF symptoms. No atypical chest pain for CAD. No palpitations. No orthopnea.. GASTROINTESTINAL: No abdominal pain. No nausea or vomiting. No diarrhea or constipation. No hematemesis. No hematochezia. GENITOURINARY: Lamb catheter in place. Feeling of not completely emptying his bladder. MUSCULOSKELETAL: No musculoskeletal pain; no joint swelling. NEUROLOGICAL: Awake, alert, oriented to time, place and person. No headache. No neck pain. No syncope. No seizures. No dizziness. PSYCHIATRIC: Not anxious. No depression. No suicidal thoughts. No homicidal thoughts. SKIN: No rash. No lesions. No wounds. ENDOCRINE: No unexplained weight loss. No weight gain. HEMATOLOGIC/LYMPHATIC: No anemia. No purpura. No petechiae. No prolonged or excessive bleeding. No palpable lymph nodes. PHYSICAL EXAMINATION: GENERAL: The patient is awake, alert and oriented, lying/sitting in bed in no distress. VITAL SIGNS: Temperature 99.2 F, Pulse 89, Respiratory Rate 16, BP 111/65, Pulse Ox 91% HEENT: Face is symmetric. Head normocephalic, atraumatic. Eyes: Extraocular muscles are intact. Pupils are equal, round and reactive to light and accommodation. Ears: No lesions. Nose appeared normal. Throat: No exudate or erythema. NECK: Supple. No JVD, no carotid bruit. No lymphadenopathy or thyromegaly. LUNGS: Clear to auscultation. Percussion note normal. Chest symmetrical. HEART: S1, S2, no S3. No murmurs. No cyanosis or clubbing. No ascites. Pulses: Dorsalis pedis and posterior tibial pulses +1 to +2 both sides. ABDOMEN: Soft. Non-tender. Bowel sounds active. No CVA tenderness. No mass felt. EXTREMITIES: No edema. Full range of motion of all extremities, equal. NEUROLOGIC: No focal deficit. Cranial nerves II through XII are grossly intact. No headache, no double vision or headache. SKIN: Warm and dry. Intact. Turgor-normal. LYMPHATIC: No palpable lymph nodes/no lymphedema. MUSCULOSKELETAL: Normal joints with no swelling. Muscle tone is normal. LAB REVIEW: 01/04/19 06:11 01/04/19 06:11 01/04/19 06:11: Sodium 123.6 L, Potassium 4.30, Chloride 91.9 L, Carbon Dioxide 25.2, Anion Gap 10.80, BUN 7.7 L, Creatinine 0.75, Estimated GFR (MDRD) 113.00, BUN/Creatinine Ratio 10.26, Glucose 134.1 H, Calcium 8.73 01/04/19 06:11: WBC 25.00 H D, RBC 3.67 L, Hgb 11.3 L, Hct 31.5 L, MCV 85.8, MCH 30.8, MCHC 35.9 H, RDW Coeff of Javed 11.7, Plt Count 210, Immature Gran % (Auto) 0.8, Neut % (Auto) 84.8, Lymph % (Auto) 4.6 L, [place] % (Auto) 9.7, Eos % (Auto) 0.0, Baso % (Auto) 0.1, Immature Gran # (Auto) 0.2, Neut # (Auto) 21.2 H, Lymph # (Auto) 1.2, [place] # (Auto) 2.4 H, Eos # (Auto) 0.0, Baso # (Auto) 0.0 01/03/19 21:00: Procalcitonin 0.11 01/03/19 21:00: Lactic Acid 1.59 01/03/19 20:00: Sodium 123.8 L, Potassium 4.37, Chloride 87.6 L, Carbon Dioxide 27.8, Anion Gap 12.77, BUN 8.2 L, Creatinine 0.76, Estimated GFR (MDRD) 111.00, BUN/Creatinine Ratio 10.78, Glucose 143.2 H, Calcium 9.47, Total Bilirubin 0.73, AST 24.7, ALT 16.5, Alkaline Phosphatase 85.0, Total Protein 7.66, Albumin 4.53, Globulin 3.13, Albumin/Globulin Ratio 1.44 01/03/19 20:00: WBC 19.64 H, RBC 4.04 L, Hgb 12.6 L, Hct 35.0 L, MCV 86.6, MCH 31.2 H, MCHC 36.0 H, RDW Coeff of Javed 11.7, Plt Count 252, Immature Gran % (Auto) 0.6, Neut % (Auto) 92.0, Lymph % (Auto) 2.5 L, [place] % (Auto) 4.7, Eos % (Auto) 0.1, Baso % (Auto) 0.1, Immature Gran # (Auto) 0.1, Neut # (Auto) 18.1 H, Lymph # (Auto) 0.5 L, [place] # (Auto) 0.9, Eos # (Auto) 0.0, Baso # (Auto) 0.0 01/03/19 19:29: Urine Color Yellow, Urine Clarity Cloudy, Urine pH 8.5, Ur Specific [place] 1.020, Urine Protein 2+, Urine Glucose (UA) Negative, Urine Ketones 1+, Urine Blood 2+, Urine Nitrite Positive, Urine Bilirubin Negative, Urine Urobilinogen 1.0, Ur Leukocyte Esterase 3+, Urine Microscopic RBC 5-10, Urine Microscopic WBC 30-50, Ur Squamous Epith Cells Not present, Ur Renal Epithelial Cell 0-2, Amorphous Sediment Trace, Urine Bacteria 1+ ASSESSMENT: Please see below. 1. UTI with leukocytosis and low grade fever. 2. Hyponatremia from drinking too much water as he was instructed to do for UTI. 3. History of hypertension. 4. Generalized osteoarthritis. 5. Depression. PLAN: 1. Continue all medications. 2. Continue Levaquin, add Azactam 1 gm q.12hr. 3. Continue IV fluids 1000 mL q.12hr. 4. D/C Meloxicam. 5. Restrict oral fluid intake. Plan and coordination of the patient's care discussed in the presence of Terminal System Operator and nurse. CONDITION: Stable SCRIBED BY: BHUMIKA SIMPSON Portfolio Manager scribed while in presence of service performed [facility] on 01/04/19 ([id number])
[2019-01-04] MEDS: AZACTAM 1 GM in SODIUM CHLORIDE 50 ML IV SCH ×2 (10:34→22:32)
[2019-01-04] MEDS: SODIUM CHLORIDE 1,000 ML IV SCH ×2 (10:35→11:44)
[2019-01-04] MEDS ORDERED: MYLANTA SUSP PO STA (19:49)
[2019-01-04] MEDS: LEVAQUIN 500 MG/100 ML D5W 500 MG/100 ML BAG IV SCH (20:30)
[2019-01-04] MEDS: ZANTAC PO SCH (20:31)
[2019-01-05] MEDS: SODIUM CHLORIDE 1,000 ML IV SCH ×3 (00:12→15:31)
[2019-01-05] MEDS: AZACTAM 1 GM in SODIUM CHLORIDE 50 ML IV SCH ×2 (08:31→20:52)
[2019-01-05] MEDS: TRIHEXYPHENIDYL 2 MG PO SCH ×3 (08:35→20:53)
[2019-01-05] MEDS: TRILEPTAL PO SCH ×3 (08:35→20:49)
[2019-01-05] MEDS: HALDOL PO SCH ×3 (08:35→20:49)
[2019-01-05] MEDS: TENORMIN PO SCH (08:35)
[2019-01-05] MEDS: NORVASC PO SCH (08:35)
[2019-01-05] MEDS: ATARAX PO SCH ×3 (08:36→20:52)
[2019-01-05] MEDS: COGENTIN PO SCH ×3 (08:37→20:51)
[2019-01-05] MEDS: LOVENOX SUBCUT SCH (08:40)
--- NOTE | 2019-01-05 13:18 | PCM.PROG ---
Attending Provider: ATTENDING PROVIDER: [facility] DATE OF SERVICE: 01/05/19 SUBJECTIVE: This 43 year old /WHITE M was hospitalized 01/03/19 hospitalized with urinary tract infection with gram negative rods. WBC count 19.5. The patient is feeling better. He is up and about. REVIEW OF SYSTEMS: CONSTITUTIONAL: No night sweats. No fatigue, malaise, lethargy. No fever or chills. HEENT: Eyes: No visual changes. No eye pain. No eye discharge. ENT: No runny nos e. No epistaxis. No sinus pain. No odynophagia. No congestion. RESPIRATORY: No cough, no congestion. No hemoptysis. No shortness of breath. CARDIOVASCULAR: No angina symptoms. No CHF symptoms. No atypical chest pain for CAD. No palpitations. No orthopnea.. GASTROINTESTINAL: Aopetite improved. No abdominal pain. No nausea or vomiting. No diarrhea or constipation. No hematemesis. No hematochezia. GENITOURINARY: Lamb catheter is draining well. No urgency. No frequency. No dysuria. No hematuria. No obstructive symptoms. No discharge. No pain. No significant abnormal bleeding. MUSCULOSKELETAL: No musculoskeletal pain; no joint swelling. NEUROLOGICAL: Awake, alert, oriented to time, place and person. No headache. No neck pain. No syncope. No seizures. No dizziness. PSYCHIATRIC: Not anxious. No depression. No suicidal thoughts. No homicidal thoughts. SKIN: No rash. No lesions. No wounds. ENDOCRINE: No unexplained weight loss. No weight gain. HEMATOLOGIC/LYMPHATIC: No anemia. No purpura. No petechiae. No prolonged or excessive bleeding. No palpable lymph nodes. PHYSICAL EXAMINATION: GENERAL: The patient is awake, alert and oriented, lying/sitting in bed in no distress. VITAL SIGNS: Temperature 98.0 F, Pulse 77, Respiratory Rate 15, BP 116/65, Pulse Ox 98% HEENT: Head normocephalic, atraumatic. Eyes: Extraocular muscles are intact. Pupils are equal, round and reactive to light and accommodation. Ears: No lesions. Nose appeared normal. Throat: No exudate or erythema. NECK: Supple. No JVD, no carotid bruit. No lymphadenopathy or thyromegaly. LUNGS: Clear to auscultation. Percussion note normal. Chest symmetrical. HEART: S1, S2, no S3. No murmurs. No cyanosis or clubbing. No ascites. Pulses: Dorsalis pedis and posterior tibial pulses +1 to +2 both sides. ABDOMEN: Soft. Non-tender. Bowel sounds active. No CVA tenderness. No mass felt. EXTREMITIES: No edema. Full range of motion of all extremities, equal. NEUROLOGIC: No focal deficit. Cranial nerves II through XII are grossly intact. No headache, no double vision or headache. SKIN: Warm and dry. Intact. Turgor-normal. LYMPHATIC: No palpable lymph nodes/no lymphedema. MUSCULOSKELETAL: Normal joints with no swelling. Muscle tone is normal. LAB REVIEW: 01/05/19 06:40 01/05/19 06:40 01/05/19 06:40: Sodium 128.7 L, Potassium 3.98, Chloride 98.2, Carbon Dioxide 27.1, Anion Gap 7.38, BUN 6.6 L, Creatinine 0.79, Estimated GFR (MDRD) 107.00, BUN/Creatinine Ratio 8.35, Glucose 123.8 H, Calcium 8.50 01/05/19 06:40: WBC 19.55 H D, RBC 3.37 L, Hgb 10.2 L, Hct 29.9 L, MCV 88.7, MCH 30.3, MCHC 34.1, RDW Coeff of Javed 12.1, Plt Count 191, Immature Gran % (Auto) 0.7, Neut % (Auto) 83.1, Lymph % (Auto) 7.5 L, [place] % (Auto) 7.8, Eos % (Auto) 0.6, Baso % (Auto) 0.3, Immature Gran # (Auto) 0.1, Neut # (Auto) 16.3 H, Lymph # (Auto) 1.5, [place] # (Auto) 1.5, Eos # (Auto) 0.1, Baso # (Auto) 0.1 ASSESSMENT: Please see below. 1. Urinary tract infection with gram negative rods seems to be resolving on Levaquin and Azactam. 2. Hyponatremia is resolving with NS at 70 cc/hr. On admission sodium was 123 and now 128. PLAN: Nutritional status discussed. Advised to keep up with his nutritional status. Plan and coordination of the patient's care discussed in the presence of Fire Watcher and nurse. CONDITION: IMPROVING SCRIBED BY: BHUMIKA SIMPSON Notching Machine Operator scribed while in presence of service performed by Dr. KRISTIN MENDOZAMONTY on 01/05/19 ([id number])
[2019-01-05] MEDS: ZANTAC PO SCH (20:51)
[2019-01-05] MEDS: LEVAQUIN 500 MG/100 ML D5W 500 MG/100 ML BAG IV SCH (22:49)
[2019-01-06] MEDS: B & O SUPPOSITORY RC PRN (08:37)
[2019-01-06] MEDS: TRILEPTAL PO SCH ×3 (08:37→20:25)
[2019-01-06] MEDS: HALDOL PO SCH ×3 (08:38→20:25)
[2019-01-06] MEDS: NORVASC PO SCH (08:38)
[2019-01-06] MEDS: COGENTIN PO SCH ×3 (08:38→20:25)
[2019-01-06] MEDS: LOVENOX SUBCUT SCH (08:39)
[2019-01-06] MEDS: ATARAX PO SCH ×3 (08:39→20:26)
[2019-01-06] MEDS: TENORMIN PO SCH (08:39)
[2019-01-06] MEDS: AZACTAM 1 GM in SODIUM CHLORIDE 50 ML IV SCH ×2 (08:40→20:25)
[2019-01-06] MEDS: SODIUM CHLORIDE 1,000 ML IV SCH (08:40)
[2019-01-06] MEDS: TRIHEXYPHENIDYL 2 MG PO SCH ×3 (08:40→20:26)
[2019-01-06] MEDS: ZANTAC PO SCH (20:25)
[2019-01-06] MEDS: LEVAQUIN 500 MG/100 ML D5W 500 MG/100 ML BAG IV SCH (21:31)
[2019-01-07] MEDS: SODIUM CHLORIDE 1,000 ML IV SCH (03:27)
[2019-01-07 05:18] VITALS: BP 100/62; TEMP 97.8
[2019-01-07] MEDS ORDERED: CITRATE OF MAGNESIA PO STA (08:43)
[2019-01-07] MEDS: B & O SUPPOSITORY RC PRN (08:56)
[2019-01-07] MEDS: TRILEPTAL PO SCH (08:57)
[2019-01-07] MEDS: ATARAX PO SCH (08:57)
[2019-01-07] MEDS: HALDOL PO SCH (08:57)
[2019-01-07] MEDS: COGENTIN PO SCH (08:58)
[2019-01-07] MEDS: TENORMIN PO SCH (08:58)
[2019-01-07] MEDS: TRIHEXYPHENIDYL 2 MG PO SCH (08:59)
[2019-01-07] MEDS ORDERED: NORVASC PO SCH (09:00)
[2019-01-07] MEDS: LOVENOX SUBCUT SCH (09:03)
--- NOTE | 2019-01-07 10:17 | PN ---
DATE OF SERVICE: 01/06/19 SUBJECTIVE: 43 year old white male hospitalized with fever and chills with urinary tract infection. The patient has Lamb Catheter. The patient's WBC count is now down to 11,000 from 30,000. He is afebrile and doing better. Appetite seems to be improving. REVIEW OF SYSTEMS: CONSTITUTIONAL: No night sweats. No fatigue, malaise, lethargy. No fever or chills. Weakness. HEENT: Eyes: No visual changes. No eye pain. No eye discharge. ENT: No runny nose. No epistaxis. No sinus pain. No sore throat. No odynophagia. No congestion. RESPIRATORY: No cough, no congestion. No hemoptysis. No shortness of breath. CARDIOVASCULAR: No angina symptoms. No CHF symptoms. No atypical chest pain for CAD. No palpitations. No PND. No orthopnea. GASTROINTESTINAL: No abdominal pain. No nausea or vomiting. No diarrhea or constipation. No hematemesis. No hematochezia. GENITOURINARY: No urgency. No frequency. No dysuria. No hematuria. No obstructive symptoms. No discharge. No pain. No significant abnormal bleeding. MUSCULOSKELETAL: No musculoskeletal pain; no joint swelling. NEUROLOGICAL: No headache. No neck pain. No syncope. No seizures. No dizziness. PSYCHIATRIC: Not anxious. No depression. No suicidal thoughts. No homicidal thoughts. SKIN: No rash. No lesions. No wounds. ENDOCRINE: No unexplained weight loss. No weight gain. HEMATOLOGIC/LYMPHATIC: No anemia. No purpura. No petechiae. No prolonged or excessive bleeding. No palpable lymph nodes. PHYSICAL EXAMINATION: VITAL SIGNS: Temperature 98.1, pulse 67, respiratory rate 18, blood pressure 98/60 and pulse ox 100% on room air. HEENT: Head normocephalic, atraumatic. Eyes: Extraocular muscles are intact. Pupils are equal, round and reactive to light and accommodation. Ears: No lesions. Nose appeared normal. Throat: No exudate or erythema. NECK: Supple. No JVD, no carotid bruit. No lymphadenopathy or thyromegaly. LUNGS: Decreased breath sounds but clear to auscultation. Percussion note normal. Chest symmetrical. HEART: S1, S2, no S3. No murmurs. No cyanosis or clubbing. No ascites. Pulses: Dorsalis pedis and posterior tibial pulses +1 to +2 bilaterally. ABDOMEN: Soft. Nontender. Bowel sounds active. No CVA tenderness. No mass felt. EXTREMITIES: No edema. Full range of motion of all extremities, equal. NEUROLOGIC: No focal deficit. Cranial nerves II through XII are grossly intact. No headache, no double vision or headache. SKIN: Not dry. Intact. Turgor - normal. LYMPHATIC: No palpable lymph nodes/no lymphedema. MUSCULOSKELETAL: Normal joints with no swelling. Muscle tone is normal. LABS: Hgb 11.2, hct 32, WBC 11,500 normal differential, creatinine 0.7, BUN 8, sodium 129 which has gone up from 121. ASSESSMENT: 1. Urinary tract infection seems to be under control with IV antibiotics 2. Hyponatremia seems to be resolving PLAN: 1. Continue Azactam and Levaquin 2. The patient has an appointment to see primary care on Thursday as Primary Care is now in the office Thursday and Thursday. 3. The patient is strongly to advised to rest when the patient goes home. 4. Advised not to smoke or have alcohol, marijuana or other drugs. 5. Lamb Catheter care discussed with the patient CONDITION: Stable. TIME SPENT: More than 30 minutes. Plan and coordination of the patient's care discussed in the presence of nurse. CATRINA
--- NOTE | 2019-01-07 10:32 | DS ---
DATE OF SERVICE: 01/07/19 (Discharge Note/Discharge Summary) FINAL DIAGNOSIS: 1. UTI, KLEBSIELLA PNEUMONIAE 2. HYPONATREMIA 3. INDWELLING VITAL CATHETER (URINARY RETENTION 12/28/2018) 4. COPD 5. HYPERTENSION 6. OSTEOARTHRITIS 7. DEPRESSION 8. GERD 9. HYPERTENSION LAST VITALS Temp Pulse Resp BP Pulse Ox 97.8 F 71 18 100/62 100 01/07/19 05:17 01/07/19 05:17 01/07/19 05:17 01/07/19 05:17 01/07/19 05:17 DISCHARGE INSTRUCTIONS: 1. AN APPOINTMENT IS SCHEDULED WITH DR. JONAH PACHECO ON December AT 1:45 PM IN [place] 2. AN APPOINTMENT IS SCHEDULED WITH DR. CODY, UROLOGIST ON December IN [place] 3. EMPTY LEG BAG WHEN 1/2 TO 3/4 FULL. WASH AROUND CATHETER INSERTION SITE WITH MILD SOAP AND WATER AT LEAST 2 TIMES DAILY 4. CONTINUE YOUR HOME MEDICATIONS EXCEPT FOR THE CHANGES LISTED MEDICATIONS AT DISCHARGE: Amlodipine Besylate (Norvasc) 5 mg PO DAILY [facility] Last Admin: 01/07/19 08:57 Dose: 5 mg Documented by: Atenolol (Tenormin) 50 mg PO DAILY [facility] Last Admin: 01/07/19 08:58 Dose: 50 mg Documented by: Belladonna Alkaloids/Opium (B & O Suppository) 1 supp RC BID PRN PRN Reason: Bladder Spasms Last Admin: 01/07/19 08:56 Dose: 1 supp Documented by: Benztropine Mesylate (Cogentin) 0.5 mg PO TID [facility] Last Admin: 01/07/19 08:58 Dose: 0.5 mg Documented by: Haloperidol (Haldol) 1 mg PO TID [facility] Last Admin: 01/07/19 08:57 Dose: 1 mg Documented by: Hydroxyzine HCl (Atarax) 25 mg PO TID [facility] Last Admin: 01/07/19 08:57 Dose: 25 mg Documented by: Non-Formulary Medication (Trihexyphenidyl) 2 mg PO TID [facility] Last Admin: 01/07/19 08:59 Dose: Not Given Documented by: Oxcarbazepine (Trileptal) 300 mg PO TID [facility] Last Admin: 01/07/19 08:57 Dose: 300 mg Documented by: Ranitidine HCl (Zantac) 150 mg PO BEDTIME [facility] Last Admin: 01/06/19 20:25 Dose: 150 mg Documented by: NEW PRESCRIPTIONS: LEVAQUIN 500 MG DAILY FOR 5 DAYS B&O SUPPOSITORY INSERT 1 BID PRN BLADDER SPASMS DISCONTINUED MEDICATIONS: MELOXICAM DIET INSTRUCTIONS: REGULAR TOLERATED LIQUIDS PER NORMAL, AVOID DRINKING LARGE QUANTITIES OF WATER ACTIVITY: RESUME TOLERATED SMOKING: NOT APPLICABLE, PATIENT STOPPED SEVERAL YEARS AGO. DISEASE SPECIFIC EDUCATION: APPOINTMENTS PRESCRIPTIONS HYDRATION MAINTENANCE OF VITAL CATHETER HOSPITAL COURSE: This 43 year old /WHITE M was hospitalized 01/03/19 with urinary tract infection with Klebsiella Pneumoniae treated with Levaquin and Azactam. Cultures sensitive to Levaquin. The patient is discharged on Levaquin 500 mg for 5 days. The patient has been afebrile for last three days. WBC 10,000 however went as high as 30,000. The patient's blood pressure is BP is 100 systolic, borderline, so Amlodipine is decreased to 5 mg. Advised to continue rest of medications as before except Meloxicam. The patient has an appointment for followup with primary care on Thursday and Urology on 27 of January. I strongly advised the patient to followup with his physicians. BNO suppository given for bladder spasms. Advised to drink alot of fluids, take medication regularly and advised to not smoke marijuana. During the patient's hosptal stay, he was treated with IV Levaquin and Azactam. IV fluids given. Cardiovascular and respiratory status normal. The patient lives alone with his girlfriend. He is not eating on a regular basis. He is advised to improve his nutritional status. Condition stable at discharge. Vital signs this morning on rounds were: Temperature 97.8 F, Pulse 71, Respiratory Rate 18, BP 100/62, Pulse Ox 100%. LAB REVIEW: 01/07/19 04:54: Sodium 128.9 L, Potassium 4.20, Chloride 98.9, Carbon Dioxide 24.3, Anion Gap 9.90, BUN 9.8, Creatinine 0.65, Estimated GFR (MDRD) 133.00, BUN/Creatinine Ratio 15.07, Glucose 91.9, Calcium 8.64, Total Bilirubin 0.31, AST 22.8, ALT 15.8, Alkaline Phosphatase 58.4, Total Protein 6.53, Albumin 3.46 L, Globulin 3.07, Albumin/Globulin Ratio 1.12 01/07/19 04:54: WBC 10.08, RBC 3.49 L, Hgb 10.5 L, Hct 30.9 L, MCV 88.5, MCH 30.1, MCHC 34.0, RDW Coeff of Javed 12.4, Plt Count 263, Immature Gran % (Auto) 0.5, Neut % (Auto) 65.5, Lymph % (Auto) 20.4, [place] % (Auto) 10.7 H, Eos % (Auto) 2.6, Baso % (Auto) 0.3, Immature Gran # (Auto) 0.1, Neut # (Auto) 6.6, Lymph # (Auto) 2.1, [place] # (Auto) 1.1, Eos # (Auto) 0.3, Baso # (Auto) 0.0 TIME SPENT: More than 60 minutes. SCRIBED BY: BHUMIKA SIMPSON, Music Grapher scribed while in presence of service performed by Dr. KRISTIN [facility]ENDOZA-[facility] on 01/07/19 ([id number]) [facility]
--- NOTE | 2019-01-07 10:33 | PN ---
CODING FOR BILLING 01/04/19 ADMISSION DAY LEVEL 5 01/05/19 INTERMEDIATE 01/06/19 INTERMEDIATE 01/07/19 DISCHARGE MTDD
--- NOTE | 2019-01-07 13:22 | CM.DICTOOL ---
ADMISSION: 01/03/19 22:38 DISCHARGE: JANUARY 07, 2019 DATE OF SERVICE: 01/07/19 FINAL DIAGNOSIS UTI, KLEBSIELLA PNEUMONIAE HYPONATREMIA INDWELLING VITAL CATHETER (URINARY RETENTION 12/28/2018) COPD HYPERTENSION OSTEOARTHRITIS DEPRESSION GERD HYPERTENSION LAST VITALS Temp Pulse Resp BP Pulse Ox 97.8 F 71 18 100/62 100 01/07/19 05:17 01/07/19 05:17 01/07/19 05:17 01/07/19 05:17 01/07/19 05:17 TAKE THESE MEDICATIONS AT HOME Amlodipine Besylate (Norvasc) 5 mg PO DAILY [facility] Last Admin: 01/07/19 08:57 Dose: 5 mg Documented by: Atenolol (Tenormin) 50 mg PO DAILY [facility] Last Admin: 01/07/19 08:58 Dose: 50 mg Documented by: Belladonna Alkaloids/Opium (B & O Suppository) 1 supp RC BID PRN PRN Reason: Bladder Spasms Last Admin: 01/07/19 08:56 Dose: 1 supp Documented by: Benztropine Mesylate (Cogentin) 0.5 mg PO TID [facility] Last Admin: 01/07/19 08:58 Dose: 0.5 mg Documented by: Haloperidol (Haldol) 1 mg PO TID [facility] Last Admin: 01/07/19 08:57 Dose: 1 mg Documented by: Hydroxyzine HCl (Atarax) 25 mg PO TID [facility] Last Admin: 01/07/19 08:57 Dose: 25 mg Documented by: Non-Formulary Medication (Trihexyphenidyl) 2 mg PO TID [facility] Last Admin: 01/07/19 08:59 Dose: Not Given Documented by: Oxcarbazepine (Trileptal) 300 mg PO TID [facility] Last Admin: 01/07/19 08:57 Dose: 300 mg Documented by: Ranitidine HCl (Zantac) 150 mg PO BEDTIME [facility] Last Admin: 01/06/19 20:25 Dose: 150 mg Documented by: ALLERGIES aspirin Adverse Reaction (Verified 01/03/19 19:05) Penicillins Adverse Reaction (Verified 01/03/19 19:05) Rash DISCONTINUED MEDICATIONS MELOXICAM MEDICATION CHANGE DECREASE AMLODIPINE TO 5 MG DAILY NEW PRESCRIPTIONS: PRESCRIPTIONS LEVAQUIN 500 MG DAILY FOR 5 DAYS B&O SUPPOSITORY INSERT 1 BID PRN BLADDER SPASMS SMOKING: NOT APPLICABLE, PATIENT STOPPED SEVERAL YEARS AGO DISEASE SPECIFIC EDUCATION: APPOINTMENTS PRESCRIPTIONS HYDRATION MAINTENANCE OF VITAL CATHETER LAB REVIEW: 01/07/19 04:54 01/07/19 04:54 01/07/19 04:54: Sodium 128.9 L, Potassium 4.20, Chloride 98.9, Carbon Dioxide 24.3, Anion Gap 9.90, BUN 9.8, Creatinine 0.65, Estimated GFR (MDRD) 133.00, BUN/Creatinine Ratio 15.07, Glucose 91.9, Calcium 8.64, Total Bilirubin 0.31, AST 22.8, ALT 15.8, Alkaline Phosphatase 58.4, Total Protein 6.53, Albumin 3.46 L, Globulin 3.07, Albumin/Globulin Ratio 1.12 01/07/19 04:54: WBC 10.08, RBC 3.49 L, Hgb 10.5 L, Hct 30.9 L, MCV 88.5, MCH 30.1, MCHC 34.0, RDW Coeff of Javed 12.4, Plt Count 263, Immature Gran % (Auto) 0.5, Neut % (Auto) 65.5, Lymph % (Auto) 20.4, [place] % (Auto) 10.7 H, Eos % (Auto) 2.6, Baso % (Auto) 0.3, Immature Gran # (Auto) 0.1, Neut # (Auto) 6.6, Lymph # (Auto) 2.1, [place] # (Auto) 1.1, Eos # (Auto) 0.3, Baso # (Auto) 0.0 PLAN: DISCHARGE HOME DIET: REGULAR TOLERATED LIQUIDS PER NORMAL, AVOID DRINKING LARGE QUANTITIES OF WATER ACTIVITY: RESUME TOLERATED AN APPOINTMENT IS SCHEDULED WITH DR. JONAH PACHECO ON December AT 1:45 PM IN [place] AN APPOINTMENT IS SCHEDULED WITH DR. CODY, UROLOGIST ON December IN [place] EMPTY LEG BAG WHEN 1/2 TO 3/4 FULL. WASH AROUND CATHETER INSERTION SITE WITH MILD SOAP AND WATER AT LEAST 2 TIMES DAILY CONTINUE YOUR HOME MEDICATIONS EXCEPT FOR THE CHANGES LISTED MR. CAST IS ALERT AND ORIENTED X 3. HE IS AWARE AND AGREEABLE TO DISCHARGE PLANS FOR TODAY. HE IS AWARE AND AGREEABLE TO ALL SCHEDULED APPOINTMENTS LISTED. THE UROLOGY APPOINTMENT WAS SCHEDULED BY DR. PACHECO. HE IS INDEPENDENT WITH ADL'S AND IS AMBULATORY WITHOUT STAFF ASSISTANCE. HE HAS A VITAL CATHETER THAT IS CONNECTED TO A LEG BAG TO ALLOW FOR FREEDOM OF PATIENT MOVEMENT. THE PATIENT IS ADEPT AT EMPTYING THE DRAINAGE BAG FREQUENTLY. THE UR INE IS CLEAR YELLOW IN COLOR. MR. CAST IS CONTINENT OF BOWEL AND REPORTS A LARGE STOOL THIS MORNING. HE STATES HE DID NOT REQUIRE THE MAG CITRATE WHEN OFFERED. NO SUPRAPUBIC PAIN REPORTED. NO ABDOMINAL PAIN OR NAUSEA. MEAL INTAKES ARE GOOD AT 25-100%. KRISTIN MENDOZA MD
== END 2019-01-07 13:45 | disposition home or self-care (01) | DRG 690 ==
LOC: ED 19:02 → MEDSURG B 22:38
PROVIDERS: ADMIT Internal Medicine; ATTEND Internal Medicine
DX: B96.1 Klebsiella pneumoniae [K. pneumoniae] as the cause of diseases classified elsewhere; I10 Essential (primary) hypertension; R30.0 Dysuria; T83.511A Infection and inflammatory reaction due to indwelling urethral catheter, initial encounter; F32.9 Major depressive disorder, single episode, unspecified; J44.9 Chronic obstructive pulmonary disease, unspecified; N39.0 Urinary tract infection, site not specified; R50.9 Fever, unspecified; R10.9 Unspecified abdominal pain; E87.1 Hypo-osmolality and hyponatremia; M15.9 Polyosteoarthritis, unspecified; K21.9 Gastro-esophageal reflux disease without esophagitis; F41.9 Anxiety disorder, unspecified